=== PATIENT | male | born 1945 | race Caucasian/White ===

== ENCOUNTER 2018-04-25 20:36 | Emergency (ER) | payer OTHER ==
--- NOTE | 2018-04-25 20:42 | PDOC ---
Rapid Medical Evaluation Time Seen by Provider: 04/25/18 20:38 Medical Evaluation: Allergies Allergy/AdvReac Type Severity Reaction Status Date / Time No Known Allergies Allergy Verified 06/22/14 08:58 04/25/18 20:39 I have performed a brief in-person evaluation of this patient. The patient presents with a chief complaint of: Abdominal pain, distention, vomiting, and diarrhea. Reports diaphoresis. Pertinent physical exam findings: Moderate abdominal distension, bowel sounds normoactive. No focal abdominal tenderness. I have ordered the following: EKG, labs The patient will proceed to the ED for further evaluation. 04/25/18 20:42 Discharge Disposition - Diagnosis Abdominal pain Qualifiers: Abdominal location: generalized Qualified Code(s): R10.84 - Generalized abdominal pain - Referrals - Patient Instructions - Post Discharge Activity
[2018-04-25 20:43] VITALS: BMI 29.9
[2018-04-25 21:16] LABS: BASO % 0.7 % (0-2.0); EOS % 3.6 % (0-4.5); HEMATOCRIT 40.2 % (35.4-49); HEMOGLOBIN 14.2 GM/dL (11.7-16.9); LYMPH % 17.3 % (8-40); MCH 30.8 pg (25.7-33.7); MCHC 35.3 g/dl (32.0-35.9); MEAN CELL VOLUME 87.3 fl (80-96); MEAN PLT VOLUME 10.4 fl (7.5-11.1); MONO % 6.7 % (3.8-10.2); NEUT % 71.7 % (42.8-82.8); PLATELET COUNT 188 K/MM3 (134-434); RDW 13.5 % (11.9-15.9); WHITE BLOOD COUNT 8.8 K/mm3 (4.0-10.0)
[2018-04-25 21:35] LABS: URINE APPEARANCE CLEAR; URINE BILIRUBIN NEGATIVE (<2.0 mg/dL); URINE COLOR YELLOW; URINE GLUCOSE (UA) NEGATIVE (NEGATIVE); URINE KETONE NEGATIVE (NEGATIVE); URINE LEUK ESTERASE NEGATIVE (NEGATIVE); URINE NITRITE NEGATIVE (NEGATIVE); URINE PROTEIN NEGATIVE (NEGATIVE); URINE UROBILINOGEN NEGATIVE mg/dL (0.2-1.0)
[2018-04-25] MEDS ORDERED: SODIUM CHLORIDE 1,000 ML IV STA (21:42)
[2018-04-25] MEDS ORDERED: ONDANSETRON 4 MG/2 ML VIAL IVPUSH ONE (21:42)
--- NOTE | 2018-04-25 21:51 | PDOC ---
Attending Attestation - HPI HPI: 04/25/18 22:48 Patient is a 73 year old male with a significant past medical history of HTN, and diabetes, who presents to the ED with complaints of diffuse abdominal pain that began x1 month ago. Patient reports abdominal pain is a uncomfortable fullness, stating it feels like he is currently bloated. He reports experiencing associated symptoms of dizziness, increased sweating, vomiting and left sided back pain that he states is only increased with movement. Patient reports experiencing change in bowel movements, stating they appear to be soft thin like in appearance but denies any presence of blood, prompting him to come into the ED for further evaluation. Denies chest pain, Sob. Denies fevers, chills. Denies dysuria, hematuria. Denies constipation, diarrhea. Denies trauma to affected area, loss of consciousness. Denies contact with sick individuals, out of state travelling. Denies any other symptoms. Allergies: None Social history: No smoking. No alcohol. No illicit drugs. Surgical: Colonoscopy s/p 2016. PMD: None G.I: Dr. Ortiz - Physicial Exam PE: 04/25/18 22:48 GENERAL: Awake, alert, and fully oriented, in no acute distress HEAD: No signs of trauma EYES: PERRLA, EOMI, sclera anicteric, conjunctiva clear ENT: Auricles normal inspection, hearing grossly normal, nares patent, oropharynx clear without exudates. Moist mucosa NECK: Normal ROM, supple, no lymphadenopathy, JVD, or masses LUNGS: Breath sounds equal, clear to auscultation bilaterally. No wheezes, and no crackles HEART: Regular rate and rhythm, normal S1 and S2, no murmurs, rubs or gallops ABDOMEN: Soft, nontender, normoactive bowel sounds. No guarding, no rebound. No masses EXTREMITIES: Normal range of motion, no edema. No clubbing or cyanosis. No cords, erythema, or tenderness NEUROLOGICAL: Cranial nerves II through XII grossly intact. Normal speech, normal gait SKIN: Warm, Dry, normal turgor, no rashes or lesions noted. <Xavi Nascimento - Last Filed: 04/25/18 22:48> - Resident Resident Name: Abdullahi Quiroz - ED Attending Attestation I have performed the following: I have examined & evaluated the patient, The case was reviewed & discussed with the resident, I agree w/resident's findings & plan, Exceptions are as noted - Medical Decision Making 04/25/18 21:51 I, Dr. Marisol Mitchell, DO, attest that this document has been prepared under my direction and personally reviewed by me in its entirety. I further attest, that it accurately reflects all work, treatment, procedures and medical decision -making performed by me. 04/25/18 22:14 a/p: 73yo male with 1 month of looser stool, change in stool form, abd distention -hx of colonoscopy in [address] Brandon Haley -no melena, no diarrhea, no blood in stool -will send labs, ct abd/pelvis -will monitor and reassess 04/26/18 01:00 ct shows prostate enlargement, but no acute pathology to explain change in stool behavior -labs reviewed resident reviewed the ct with the patient the patient has an appt for follow up with GI for 04/[address] Haley pt will keep appt and follow up with GI and pmd. stable for dc to home <Marisol Mitchell - Last Filed: 04/26/18 01:01>
[2018-04-25] MEDS ORDERED: ONDANSETRON 4 MG/2 ML VIAL ONE (21:53)
[2018-04-25 22:27] LABS: ALBUMIN 3.9 g/dl (3.4-5.0); ALK PHOS 64 U/L (45-117); ANION GAP 9 MMOL/L (8-16); BILIRUBIN,TOTAL 1.6 mg/dL (0.2-1); BLOOD UREA NITROGEN 9 mg/dL (7-18); CALCIUM 8.8 mg/dL (8.5-10.1); CHLORIDE 106 mmol/L (98-107); CO2 26 mmol/L (21-32); CREATININE 0.7 mg/dL (0.55-1.3); GLUCOSE,RANDOM 138 mg/dL (74-106); LIPASE 92 U/L (73-393); POTASSIUM 3.7 mmol/L (3.5-5.1); SGOT/AST 12 U/L (15-37); SGPT/ALT 17 U/L (13-61); SODIUM 141 mmol/L (136-145)
--- NOTE | 2018-04-26 01:19 | PDOC ---
History of Present Illness - General Chief Complaint: Nausea/Vomiting Stated Complaint: NAUSEA/DIZZINESS Time Seen by Provider: 04/25/18 20:38 History Source: Patient Exam Limitations: No Limitations - History of Present Illness Initial Comments: 73 yo M with a hx of HTN, borderline diabetes, and HLD presents to the emergency Past History - Past Medical History Allergies/Adverse Reactions: Allergies Allergy/AdvReac Type Severity Reaction Status Date / Time No Known Allergies Allergy Verified 04/25/18 20:43 Home Medications: Ambulatory Orders Albuterol Sulfate [Proair Hfa -] 1 - 2 inh PO TID #1 inhaler 06/22/14 Atorvastatin Ca [Lipitor] 40 mg PO HS 06/22/14 Azithromycin [Zithromax 250mg Tablets -] 250 mg PO UTDICT #6 tab 06/22/14 Budesonide/Formeterol Fumarate [SYMBICORT 80/4.5mcg -] 1 inh PO DAILY 06/22/14 Doxazosin Mesylate 4 mg PO DAILY 06/22/14 metFORMIN HCL [Glucophage -] 500 mg PO BID 06/22/14 COPD: No Diabetes: Yes GI Disorders: Yes Hypercholesterolemia: Yes - Suicide/Smoking/Psychosocial Hx Smoking History: Never smoked Have you smoked in the past 12 months: No Information on smoking cessation initiated: No Hx Alcohol Use: No Drug/Substance Use Hx: No Substance Use Type: None *Physical Exam - Vital Signs Last Vital Signs Temp Pulse Resp BP Pulse Ox 97.4 F L 55 L 18 145/68 97 04/25/18 20:40 04/25/18 20:40 04/25/18 20:40 04/25/18 20:40 04/25/18 20:40 Moderate Sedation - Procedure Monitoring Vital Signs: Procedure Monitoring Vital Signs Temperature 97.4 F L 04/25/18 20:40 Pulse Rate 55 L 04/25/18 20:40 Respiratory Rate 18 04/25/18 20:40 Blood Pressure 145/68 04/25/18 20:40 O2 Sat by Pulse Oximetry (%) 97 04/25/18 20:40 ED Treatment Course - LABORATORY CBC & Chemistry Diagram: 04/25/18 20:52 04/25/18 20:52 - ADDITIONAL ORDERS Additional order review: Laboratory Results 04/25/18 04/25/18 20:58 20:52 Sodium 141 Potassium 3.7 Chloride 106 Carbon Dioxide 26 Anion Gap 9 BUN 9 Creatinine 0.7 Creat Clearance w eGFR > 60 Random Glucose 138 H Calcium 8.8 Total Bilirubin 1.6 H AST 12 L ALT 17 Alkaline Phosphatase 64 Troponin I < 0.02 Total Protein 7.0 Albumin 3.9 Lipase 92 Urine Color Yellow Urine Appearance Clear Urine pH 6.0 Ur Specific [place] 1.020 Urine Protein Negative Urine Glucose (UA) Negative Urine Ketones Negative Urine Blood Negative Urine Nitrite Negative Urine Bilirubin Negative Urine Urobilinogen Negative Ur Leukocyte Esterase Negative 04/25/18 20:52 RBC 4.60 MCV 87.3 MCHC 35.3 RDW 13.5 MPV 10.4 Neutrophils % 71.7 Lymphocytes % 17.3 Monocytes % 6.7 Eosinophils % 3.6 Basophils % 0.7 - RADIOLOGY Radiology Studies Ordered: Category Date Time Status ABDOMEN & PELVIS CT WITH CONTR [CT] Stat CT Scan 04/26/18 01:00 Taken - Medications Given in the ED: ED Medications Discontinued Medications Generic Name Dose Route Start Last Admin Trade Name Freq PRN Reason Stop Dose Admin Sodium Chloride 1,000 mls @ 1,000 mls/hr 04/25/18 21:42 04/25/18 22:10 Normal Saline - IV 04/25/18 22:41 1,000 mls/hr ASDIR STA Administration Ondansetron HCl 4 mg 04/25/18 21:42 04/25/18 22:11 Zofran Injection IVPUSH 04/25/18 21:43 4 mg ONCE ONE Administration *DC/Admit/Observation/Transfer Diagnosis at time of Disposition: Abdominal pain Qualifiers: Abdominal location: generalized Qualified Code(s): R10.84 - Generalized abdominal pain - Discharge Dispostion Disposition: HOME Decision to Admit order: No - Referrals Referrals: Edgardo Villasenor MD [Staff Physician] - [facility] [place] [Provider Group] - Patient Instructions Printed Discharge Instructions: DI for Nausea -- Adult Additional Instructions: you were seen in the emergency department for nausea and abdominal discomfort. your CT was negative for an acute pathology and your labs were within normal limits. please keep to your appointment with your email production specialist for Apr 29 2018. Please follow up with your primary medical doctor within 1 week after discharge for follow up care and management. please return to the emergency department if you have new concerning symptoms or worsening symptoms. new concerning symptoms also include fever, nausea and vomiting, and blood in the stool. thank you. please see either your email production specialist or the one we referred you to. - Post Discharge Activity
[2018-04-26 01:50] VITALS: BP 136/78; PULSE 66; TEMP 98.5
--- NOTE | 2018-04-26 11:39 | EKG ---
Test Reason : Blood Pressure : / mmHG Vent. Rate : 054 BPM Atrial Rate : 054 BPM P-R Int : 146 ms QRS Dur : 100 ms QT Int : 470 ms P-R-T Axes : 043 045 050 degrees QTc Int : 445 ms SINUS BRADYCARDIA OTHERWISE NORMAL ECG WHEN COMPARED WITH ECG OF 22-JUN-2014 09:22, VENT. RATE HAS DECREASED BY 33 BPM Confirmed by GARRETT SIMMONS MD ([id number]) on 04/26/2018 11:39:01 AM Referred By: Confirmed By:GARRETT SIMMONS MD
== END 2018-04-26 01:51 | disposition home or self-care (01) ==
LOC: JER 20:36
PROC: 3E033GC Introduction of Other Therapeutic Substance into Peripheral Vein, Percutaneous Approach (ICD-10-PCS; principal; 2018-04-25)
DX: R10.84 Generalized abdominal pain (principal)
CPT/HCPCS: 36415; 74177-TC; 80053; 81003; 83690; 84484; 85025; 93005; 93010; 99282-25; J7030

== ENCOUNTER 2019-12-18 05:18 | Day surgery (SDC) | payer OTHER ==
[2019-12-17 15:31] VITALS: BMI 29.8
[2019-12-18] MEDS ORDERED: LIDOCAINE HCL/PF 2% SDV 5ML VIAL ONE (11:28)
[2019-12-18] MEDS ORDERED: MIDAZOLAM HCL 2 MG/2 ML SINGLE DOSE VIAL ONE (11:29)
[2019-12-18] MEDS ORDERED: PROPOFOL 20 ML ONE ×2 (11:29)
[2019-12-18] MEDS ORDERED: ONDANSETRON 4 MG/2 ML VIAL IVPUSH PRN (12:17)
[2019-12-18] MEDS ORDERED: oxyCODONE HCL 5 MG TABLET PO PRN ×2 (12:17→12:28)
[2019-12-18] MEDS ORDERED: LACTATED RINGERS SOLUTION 1,000 ML IV SCH (12:30)
[2019-12-18] MEDS ORDERED: DEXTROSE 5%-0.45% SALINE 1,000 ML IV SCH (12:30)
--- NOTE | 2019-12-18 12:30 | OP ---
Operative Note - Note: Operative Date: 12/18/19 Pre-Operative Diagnosis: BPH with freq Operation: bipolar TUVP/TURP Findings: BPH Post-Operative Diagnosis: Same as Pre-op Surgeon: Matt Rasmussen Anesthesia: General, Spinal Specimens Removed: prostate chips Estimated Blood Loss (mls): 25 Drains & Tubes with Location: 3 way aaron Operative Report Dictated: Yes
--- NOTE | 2019-12-18 13:14 | OP ---
DATE OF OPERATION: 12/18/2019 PREOPERATIVE DIAGNOSIS: Benign prostatic hypertrophy with urinary frequency. POSTOPERATIVE DIAGNOSIS: Benign prostatic hypertrophy with urinary frequency. PROCEDURE: Cystoscopy, bipolar transurethral vaporization and resection of prostate. SURGEON: Suhail Stanley MD INDICATION: Patient is a 74-year-old male with both irritative and obstructive urinary symptoms. After reviewing treatment options, the patient elected to undergo bipolar TURP and TUVP, understood the risk of bleeding, infection, impotence, incontinence, stricture formation, retrograde ejaculation, potential need for additional procedure, potential injury to additional organs, and potential persistence of symptoms. DESCRIPTION OF PROCEDURE: After informed consent was obtained, patient was taken to the OR, placed supine on the table. After cardiac monitoring administered, a spinal anesthetic was then given. He was prepped and draped in dorsal lithotomy position. He was given 500 mg of Levaquin. The rigid cystoscope with visual obturator was inserted into urethra. The meatus was a bit narrow and required dilation to 26[place] in order to advance a 24[place]izen [place] resectoscope. Resectoscope was inserted into urethra. The prostatic urethra was 4 cm and visually occlusive. The bladder was visualized. No tumors or stones noted in the bladder. At this point then, using first the loop electrode, the lateral lobe tissue was resected circumferentially. No resection was carried out within 1 cm of the verumontanum. The resected area was then fulgurated with the ball electrode. All prostate chips were removed. With the resectoscope situated just past the verumontanum, looking into the bladder, a wide open channel was noted. Inspection of the bladder revealed no evidence of any injury, and bilateral ureteral orifices were seen and in normal anatomic position with good efflux. The resectoscope was then removed. Prostate chips were removed and sent to pathology for analysis, and a 22-[place]izen [place] 3-way De was placed to straight drainage. No CBI was necessary. [place]-tinged urine retrieved. Patient awoken from anesthesia and transferred to recovery room in stable condition. There were no complications. Estimated blood loss was minimal. SUHAIL STANLEY M.D. [id number]
[2019-12-18 15:47] VITALS: TEMP 97.5
[2019-12-18 17:03] VITALS: BP 110/56; PULSE 72
--- NOTE | 2019-12-25 08:27 | PATH ---
Surgical Pathology Report Patient Name: EVERETTE DODGE Med. Rec. #: [id number] /Age/Gender: 1945 (Age: 74) / M Account: [id number] Location: [facility] SURGICAL Taken: 12/18/2019 Received: 12/18/2019 Reported: 12/25/2019 Physicians: Matt Rasmussen M.D. Specimen(s) Received PROSTATE CHIPS Clinical History Nocturia Final Diagnosis PROSTATE CHIPS, TRANSURETHRAL RESECTION AND VAPORIZATION OF PROSTATE: BENIGN PROSTATIC TISSUE WITH PATCHY CHRONIC FOCAL ACUTE INFLAMMATION, ACINAR ATROPHY, CYSTIC CHANGES, GLANDULAR AND STROMAL HYPERPLASIA. Electronically Signed Brynn Morin M.D. Gross Description Received in formalin labeled "prostate chips" "is a 10 g, 7.5 x 7.0 x 0.6 cm aggregate of masters, firm to rubbery portions of tissue, consistent with prostate chips. The specimen is entirely submitted in 7 cassettes. 12/19/2019 [facility]12/19/2019
== END 2019-12-18 16:55 | disposition home or self-care (01) ==
LOC: JASU-SURG 05:18
PROVIDERS: ATTEND Urology
PROC: 0V508ZZ Destruction of Prostate, Via Natural or Artificial Opening Endoscopic (ICD-10-PCS; principal; 2019-12-18 11:30)
DX: N40.1 Benign prostatic hyperplasia with lower urinary tract symptoms (principal); R35.0 Frequency of micturition
CPT/HCPCS: 82962; 88305-TC; 94760

== ENCOUNTER 2021-02-11 09:12 | Inpatient (IN) | payer OTHER ==
[2021-02-09 10:50] VITALS: BMI 30.7
[2021-02-11] MEDS ORDERED: BUPIVACAINE HCL/PF 0.5% (5 MG/ML) 30 ML VIAL IJ ONE (10:20)
[2021-02-11] MEDS ORDERED: BUPIVACAINE LIPOSOME/PF (EXPAREL) 266 MG/20 ML VIAL ONE (10:20)
[2021-02-11] MEDS ORDERED: MIDAZOLAM HCL 2 MG/2 ML SINGLE DOSE VIAL ONE ×2 (10:20→12:06)
[2021-02-11] MEDS ORDERED: DEXAMETHASONE SOD PHOSPHATE 4 MG/1 ML VIAL ONE (11:33)
[2021-02-11] MEDS ORDERED: LIDOCAINE HCL/PF 2% SDV 5ML VIAL ONE (11:33)
[2021-02-11] MEDS ORDERED: PROPOFOL 20 ML ONE (11:33)
[2021-02-11] MEDS ORDERED: ONDANSETRON 4 MG/2 ML VIAL ONE (11:33)
[2021-02-11] MEDS ORDERED: SUCCINYLCHOLINE CHLORIDE 200 MG/10 ML SYRINGE ONE (11:33)
[2021-02-11] MEDS ORDERED: ONDANSETRON 4 MG/2 ML VIAL IVPUSH PRN (11:39)
[2021-02-11] MEDS ORDERED: MAG HYDROX/AL HYDROX/SIMETH 30 ML UNIT-DOSE CUP PO PRN (11:39)
[2021-02-11] MEDS ORDERED: MAGNESIUM HYDROX 2400MG/30ML ORAL SUSPENSION 30 ML CUP PO PRN (11:39)
[2021-02-11] MEDS ORDERED: LACTATED RINGERS SOLUTION 1,000 ML IV SCH (11:45)
[2021-02-11] MEDS ORDERED: TRANEXAMIC ACID 1000 MG/10 ML VIAL ONE ×3 (12:11→14:32)
[2021-02-11] MEDS ORDERED: VANCOMYCIN 1,000 MG VIAL (RESTRICTED TO ID ONLY) ONE ×2 (12:11→12:38)
[2021-02-11] MEDS ORDERED: ceFAZolin SODIUM 1 GM VIAL ONE (12:38)
[2021-02-11] MEDS ORDERED: ALBUTEROL SO4 HFA INHALER IH PRN (13:30)
[2021-02-11] MEDS ORDERED: oxyCODONE HCL 5 MG TABLET PO PRN ×2 (15:32)
[2021-02-11] MEDS ORDERED: ACETAMINOPHEN INJECTION 100 ML IVPB ONE (15:54)
[2021-02-11] MEDS: ACETAMINOPHEN 1000 MG/100 ML VIAL IVPB ONE ×2 (16:00→17:08)
[2021-02-11] MEDS: INSULIN (NOVOLOG) ASPART 100 UNITS/ML 10ML VIAL SQ SCH ×2 (17:07→21:25)
[2021-02-11] MEDS: KETOROLAC TROMETHAMINE 30 MG/1 ML VIAL IVPUSH SCH ×2 (17:07→21:19)
[2021-02-11] MEDS: metFORMIN HCL 500 MG TABLET (FP) PO SCH (17:07)
[2021-02-11] MEDS: CEFAZOLIN 2 GM in DEXTROSE 5%-WATER - 100 ML IVPB SCH (21:17)
[2021-02-11] MEDS: GABAPENTIN 300 MG CAPSULE PO SCH (21:21)
[2021-02-11] MEDS: ACETAMINOPHEN 500 MG TABLET (FP) PO SCH (21:21)
[2021-02-11] MEDS: SENNOSIDES/DOCUSATE COMBO (SENNA PLUS) TABLET (UD) PO SCH (21:21)
[2021-02-11] MEDS ORDERED: ATORVASTATIN CA 40 MG TABLET (FP) PO SCH (22:00)
[2021-02-12] MEDS ORDERED: VANCOMYCIN 1 GM in D5W (PRE-DOCKED) 1,000 MG/250 ML IVPB ONE (00:15)
[2021-02-12] MEDS: ACETAMINOPHEN 500 MG TABLET (FP) PO SCH ×2 (03:08→09:41)
[2021-02-12] MEDS: KETOROLAC TROMETHAMINE 30 MG/1 ML VIAL IVPUSH SCH ×2 (03:08→09:40)
[2021-02-12] MEDS: CEFAZOLIN 2 GM in DEXTROSE 5%-WATER - 100 ML IVPB SCH ×2 (06:01→13:20)
[2021-02-12] MEDS: metFORMIN HCL 500 MG TABLET (FP) PO SCH (06:35)
[2021-02-12] MEDS: INSULIN (NOVOLOG) ASPART 100 UNITS/ML 10ML VIAL SQ SCH ×2 (06:36→11:23)
[2021-02-12 08:28] LABS: HEMATOCRIT 37.7 % (35.4-49); HEMOGLOBIN 12.8 GM/dl (11.7-16.9); MCH 30.1 pg (25.7-33.7); MEAN CELL VOLUME 88.6 fl (80-96); MEAN PLT VOLUME 10.4 fl (7.5-11.1); PLATELET COUNT 189 10^3/uL (134-434); RBC 4.25 M/mm3 (4.00-5.60); RDW 12.6 % (11.9-15.9)
[2021-02-12 09:04] LABS: CALCIUM 8.8 mg/dl (8.5-10); CREATININE 0.6 mg/dl (0.55-1.3)
[2021-02-12] MEDS: SENNOSIDES/DOCUSATE COMBO (SENNA PLUS) TABLET (UD) PO SCH (09:40)
[2021-02-12] MEDS: GABAPENTIN 300 MG CAPSULE PO SCH (09:40)
[2021-02-12] MEDS ORDERED: amLODIPine BESYLATE 10 MG TABLET (FP) PO SCH (10:00)
[2021-02-12] MEDS ORDERED: PANTOPRAZOLE 40 MG TABLET PO SCH (10:00)
[2021-02-12] MEDS ORDERED: MULTIVITAMINS (DAILY MVI) TABLET (FP) PO SCH (10:00)
[2021-02-12] MEDS ORDERED: ASPIRIN 325 MG TABLET PO SCH (10:00)
[2021-02-12] MEDS ORDERED: POTASSIUM CHLORIDE TABS 10 MEQ TABLET.ER (FP) PO ONE (10:15)
[2021-02-12 13:12] VITALS: BP 119/55; PULSE 63; TEMP 98.4
== END 2021-02-12 15:35 | disposition home or self-care (01) | DRG 483 ==
LOC: FM/S 09:12
PROVIDERS: ADMIT Orthopaedic Surgery; ATTEND Nurse Practitioner Family
PROC: 0RBK4ZZ Excision of Left Shoulder Joint, Percutaneous Endoscopic Approach (ICD-10-PCS; 2021-02-11)
PROC: 0RRK00Z Replacement of Left Shoulder Joint with Reverse Ball and Socket Synthetic Substitute, Open Approach (ICD-10-PCS; principal; 2021-02-11 12:58)
DX: M19.012 Primary osteoarthritis, left shoulder (principal); M75.100 Unspecified rotator cuff tear or rupture of unspecified shoulder, not specified as traumatic; I10 Essential (primary) hypertension; E78.5 Hyperlipidemia, unspecified; E11.9 Type 2 diabetes mellitus without complications; K59.00 Constipation, unspecified; D72.829 Elevated white blood cell count, unspecified; E66.9 Obesity, unspecified; Z68.30 Body mass index [BMI] 30.0-30.9, adult
CPT/HCPCS: 36415; 73030-TC-LT-FY; 80048; 82962; 85027; 94760; 97116-GP; 97161-GP; J0131

== ENCOUNTER 2022-12-04 15:26 | Emergency (ER) | payer OTHER ==
[2022-12-04 15:54] VITALS: TEMP 98.2; BMI 29.0
[2022-12-04] MEDS ORDERED: MECLIZINE HCL 12.5 MG TABLET PO ONE (16:30)
[2022-12-04] MEDS ORDERED: MECLIZINE HCL 12.5 MG TABLET ONE (16:45)
[2022-12-04 17:26] LABS: BASO % 1.2 % (0-2.0); EOS % 9.1 % (0-4.5); HEMATOCRIT 41.8 % (35.4-49); HEMOGLOBIN 14.1 GM/dL (11.7-16.9); MCH 29.4 pg (25.7-33.7); MCHC 33.8 g/dl (32.0-35.9); MEAN CELL VOLUME 87.1 fl (80-96); MEAN PLT VOLUME 9.4 fl (7.5-11.1); NEUT % 43.7 % (42.8-82.8); PLATELET COUNT 219 10^3/uL (134-434); RDW 14.6 % (11.9-15.9); WHITE BLOOD COUNT 4.6 K/mm3 (4.0-10.0)
[2022-12-04 17:37] LABS: INR 1.02 (0.83-1.09); PROTHROMBIN TIME (PATIENT) 11.8 SEC (9.7-13.0)
[2022-12-04 17:40] LABS: ACTIVATED PTT 29.7 SECONDS (25.2-36.5)
[2022-12-04 17:45] LABS: POTASSIUM 4.4 mmol/L (3.5-5.1)
[2022-12-04 17:48] LABS: CALCIUM 8.8 mg/dL (8.5-10.1)
[2022-12-04 17:49] LABS: ALBUMIN 3.7 g/dl (3.4-5.0); BLOOD UREA NITROGEN 8.2 mg/dL (7-18)
[2022-12-04 17:52] LABS: CREATININE 0.8 mg/dL (0.55-1.3)
[2022-12-04 17:54] LABS: BILIRUBIN,TOTAL 1.1 mg/dL (0.2-1); TOT PROT 7.4 g/dl (6.4-8.2)
[2022-12-04 18:55] VITALS: BP 131/64; PULSE 80; RESP 16
== END 2022-12-04 18:55 | disposition home or self-care (01) ==
LOC: JER 15:26
DX: R42 Dizziness and giddiness (principal); R05.9 Cough, unspecified; R09.81 Nasal congestion; R09.89 Other specified symptoms and signs involving the circulatory and respiratory systems; J34.89 Other specified disorders of nose and nasal sinuses; U07.1 COVID-19
CPT/HCPCS: 0241U-QW; 36415; 71045-TC-FY; 80053; 84484; 85025; 85610; 85730; 93005; 93010; 99285-25